=== PATIENT | male | born 1960 | race Caucasian/White ===

== ENCOUNTER 2023-07-31 10:47 | Outpatient (CLI) | payer BC | END 2023-07-31 10:48 | disposition home or self-care (01) | LOC: CSHCP 10:47 | PROVIDERS: ATTEND Internal Medicine | DX: J44.9 Chronic obstructive pulmonary disease, unspecified (principal) | CPT/HCPCS: 94060; 94726; 94729; 94760 ==

== ENCOUNTER 2024-11-08 10:26 | Outpatient (CLI) | payer OTHER | END 2024-11-08 10:27 | disposition home or self-care (01) | LOC: CSHSLEEP 10:26 | PROVIDERS: ATTEND Internal Medicine | DX: G47.33 Obstructive sleep apnea (adult) (pediatric) (principal); R53.83 Other fatigue; R06.83 Snoring; E66.9 Obesity, unspecified; Z68.28 Body mass index [BMI] 28.0-28.9, adult | CPT/HCPCS: 95810 ==

== ENCOUNTER 2024-12-06 09:11 | Outpatient (CLI) | payer OTHER | END 2024-12-06 09:12 | disposition home or self-care (01) | LOC: CSHSLEEP 09:11 | PROVIDERS: ATTEND Internal Medicine | DX: G47.33 Obstructive sleep apnea (adult) (pediatric) (principal); R53.83 Other fatigue; R06.83 Snoring; E66.9 Obesity, unspecified; Z68.28 Body mass index [BMI] 28.0-28.9, adult | CPT/HCPCS: 95811 ==